=== PATIENT | male | born 1985 | race African-American/Black ===

== ENCOUNTER 2017-04-15 06:12 | Emergency (ER) | payer OTHER ==
[~2017-04-15] VITALS: Ht 175.3 cm; Wt 82.0 kg
[2017-04-15 09:43] VITALS: BP 121/75
== END 2017-04-15 09:51 | disposition home or self-care (01) ==
LOC: ER 07:24
DX: L72.8 Other follicular cysts of the skin and subcutaneous tissue (principal); R03.0 Elevated blood-pressure reading, without diagnosis of hypertension; F17.210 Nicotine dependence, cigarettes, uncomplicated
CPT/HCPCS: 73090; 99284